=== PATIENT | female | born 1945 | race Two or more races ===

== ENCOUNTER 2019-06-20 11:58 | Inpatient (IN) | payer MEDICARE, MEDICAID ==
[~2019-06-20] VITALS: Ht 157.5 cm; Wt 92.5 kg
--- NOTE | 2019-06-20 03:32 | NUR ---
Patient recieved alert and orientated X3 Bhutanese speaking. she is aware she needs to call for assist when need to get OOB. Bed alarm on.
--- NOTE | 2019-06-20 12:02 | NUR ---
syncopal episode s/p vascular procedure , pt on monitor, pt to bed 5, -sob, nad noted, vss, pending md thomson
[2019-06-20 12:39] LABS: BASOPHILS % (AUTO) 0.6 % (0.0-2.0); EOSINOPHILS % (AUTO) 3.5 % (0.0-6.0); HEMATOCRIT 33 % (33-45); LYMPHOCYTES # (AUTO) 1.8 /CMM (0.8-4.8); LYMPHOCYTES % (AUTO) 23.5 % (20.0-44.0); MEAN CORPUSCULAR HGB CONC 33 g/dl (31.0-36.0); MEAN CORPUSCULAR VOLUME 101 fL (82-100); MONOCYTES # (AUTO) 0.5 /CMM (0.1-1.30); MONOCYTES % (AUTO) 6.6 % (2.0-12.0); NEUTROPHILS # (AUTO) 5.1 /CMM (1.8-8.9); NEUTROPHILS % (AUTO) 65.8 % (43.0-81.0); PLATELET COUNT (AUTO) 252 /CMM (150-450); RED BLOOD CELL COUNT(AUTO) 3.27 MIL/uL (4.0-5.2); WHITE BLOOD COUNT (AUTO) 7.8 K/uL (4.3-11.0)
[2019-06-20 12:46] LABS: CALCIUM, SERUM 9.2 mg/dL (8.5-10.1); CARBON DIOXIDE 22 mmol/L (21-32); CHLORIDE 99 mmol/L (98-107); GLUCOSE 87 mg/dL (74-106); POTASSIUM 4.6 mmol/L (3.5-5.1); SODIUM SERUM 136 mmol/L (136-145); UREA NITROGEN, BLOOD 46 mg/dL (7-18)
[2019-06-20 12:47] LABS: CREATININE 8.9 mg/dL (0.6-1.3)
[2019-06-20 12:52] LABS: ALKALINE PHOSPHATASE 95 U/L (46-116); ASPARTATE AMINOTRANSFERASE 20 U/L (15-37); BILIRUBIN,TOTAL 0.6 mg/dL (0.2-1.0)
[2019-06-20 13:07] LABS: ALANINE AMINOTRANSFERASE 19 U/L (12-78); ALBUMIN 3.7 g/dL (3.4-5.0); BILIRUBIN,DIRECT 0.1 mg/dL (0.0-0.2)
--- NOTE | 2019-06-20 13:18 | NUR ---
PANEL ON-CALL PAGED
[2019-06-20] MEDS ORDERED: SEVE2.4P3 PO (13:42)
[2019-06-20] MEDS ORDERED: LISI40TA4 PO (13:42)
[2019-06-20] MEDS ORDERED: RANI150T8 PO (13:42)
[2019-06-20] MEDS ORDERED: CARV6.252 PO (13:42)
--- NOTE | 2019-06-20 14:37 | NUR ---
tried to call for report x2, nurse not available
--- NOTE | 2019-06-20 14:41 | NUR ---
REPORT GIVEN TO YULIANA RN FOR BELINDA PT WILL BE TRANSPORTED TO 3RD FLOOR
--- NOTE | 2019-06-20 14:48 | NUR ---
transported to 3rd [facility]
[2019-06-20] MEDS ORDERED: CLONIDINE HCL 0.1 MG TABLET PO PRN (15:00)
[2019-06-20] MEDS ORDERED: ACETAMINOPHEN 325 MG TABLET PO PRN (15:00)
[2019-06-20] MEDS ORDERED: MAG HYDROX/AL HYDROX/SIMETH 30 ML UDC PO PRN (15:00)
[2019-06-20] MEDS ORDERED: Z GUARD REMEDY 2 OZ OINT TP PRN (15:00)
[2019-06-20] MEDS ORDERED: ONDANSETRON HCL/PF 4 MG/2 ML VIAL IVP PRN (15:00)
[2019-06-20] MEDS ORDERED: HYDROCODONE/APAP 5/325MG 1 EACH TABLET PO PRN (15:00)
[2019-06-20] MEDS ORDERED: MAGNESIUM HYDROXIDE 30 ML UDC PO PRN (15:00)
[2019-06-20 15:15] VITALS: BP 141/75
--- NOTE | 2019-06-20 15:30 | NUR ---
SENIOR COST ESTIMATOR NOTES PATIENT ADMITTED FROM ER TO TELE, FEMALE ON Dx OF SYNCOPE, GREENLANDIC SPEAKER 74 Y/OLD. PATIENT OBESE, A/O X3, NO ACUTE RESPIRATORY DISTRESS, NO DIZZINESS ,NO NAUSEA/VOMITING NOTED. WAS COMPLAINING ON BACK OF NECK PAIN 6/10 AND RADIATING ON THE SHOULDERS, AND LEFT ARM. TELE MONITOR ON SR-83 WITH PVC. SHUNT ON THE LEFT UPPER ARM INTACT, IV ACCESS ON RIGHT HAND INTACT SL. V/S TAKEN BP 141/75, P-78, R-19, O2-98 ROOM AIR, T-97.7. SKIN ASSESSMENT DONE INTACT. PATIENT USING BATHROOM. Dr MENENDEZ AWARE OF NEW PATIENT AND MEDICATION. DAUGHTER NEXT TO THE BED. CALL LIGHT WITHIN TO REACH, SAFETY PRECAUTION MAINTAINED ALL THE TIME.
--- NOTE | 2019-06-20 15:31 | NUR ---
BETINA NNOTES ADMINISTERED TYLENOL 650 MG PO PRN FOR NECK PAIN 11/08 PER PATIENT REQUEST.
[2019-06-20 16:00] VITALS: BP 141/75
[2019-06-20] MEDS: SEVELAMER CARBONATE 0.8 GM POWD.PACK PO SCH (17:31)
--- NOTE | 2019-06-20 18:00 | NUR ---
RN NOTES MEDICATION WERE ADMINISTERED FOR PAIN EFFECTIVE, TOLERATED DINNER WELL, ADMINISTERED SCHEDULED MEDICATION. FAMILY NEXT TO THE BED. CALL LIGHT WITHIN TO REACH. ENDORSED ONCOMING NURSE FOLLOW PLAN OF CARE.
[2019-06-20 20:00] VITALS: BP 131/69
[2019-06-20] MEDS: FAMOTIDINE (20 MG) 20 MG TABLET PO SCH (22:05)
[2019-06-20 22:19] VITALS: BP 131/69
[2019-06-21] VITALS: BP 112/74
--- NOTE | 2019-06-21 05:58 | NUR ---
Eliseo Lopez: Slept well. Noted Spanisn speak but with some understanding of ENLISH. school lunch monitor shows SR with PVC's HR 72. Dialysis shunt left arm palpable thrill. Assisted to the bathroom steady on her legs . No c/o syncopy. Bed alarm on
[2019-06-21 06:55] LABS: BASOPHILS % (AUTO) 0.5 % (0.0-2.0); EOSINOPHILS % (AUTO) 4.6 % (0.0-6.0); HEMATOCRIT 28 % (33-45); HEMOGLOBIN 9.8 g/dL (11.5-14.8); LYMPHOCYTES # (AUTO) 1.7 /CMM (0.8-4.8); LYMPHOCYTES % (AUTO) 22.4 % (20.0-44.0); MEAN CORPUSCULAR HGB CONC 35 g/dl (31.0-36.0); MEAN CORPUSCULAR VOLUME 99 fL (82-100); MONOCYTES # (AUTO) 0.5 /CMM (0.1-1.30); MONOCYTES % (AUTO) 7.4 % (2.0-12.0); NEUTROPHILS # (AUTO) 4.8 /CMM (1.8-8.9); NEUTROPHILS % (AUTO) 65.1 % (43.0-81.0); PLATELET COUNT (AUTO) 226 /CMM (150-450); RED BLOOD CELL COUNT(AUTO) 2.87 MIL/uL (4.0-5.2); WHITE BLOOD COUNT (AUTO) 7.4 K/uL (4.3-11.0)
[2019-06-21 07:18] LABS: CALCIUM, SERUM 9.1 mg/dL (8.5-10.1); CARBON DIOXIDE 26 mmol/L (21-32); CHLORIDE 99 mmol/L (98-107); GLUCOSE 87 mg/dL (74-106); MAGNESIUM 2.5 mg/dL (1.8-2.4); POTASSIUM 5.1 mmol/L (3.5-5.1); SODIUM SERUM 139 mmol/L (136-145); UREA NITROGEN, BLOOD 51 mg/dL (7-18)
[2019-06-21 08:00] VITALS: BP 140/68
--- NOTE | 2019-06-21 08:00 | NUR ---
HAND STONER OPENING NOTES Received Patient awake and resting in bed. A/O x 4, Kittitian speaking. VS stable with no acute distress. Breathing even and unlabored on room air with no respiratory distress. Denies pain. No signs and symptoms of pain. Telemonitor in place and patent reading SR with frequent PVCs and HR-86. 22g PIV on Right Hand clean, intact, patent and flushing well. Safety precautions in place. Bed locked and set to lowest position with side rails x 2 up. All needs rendered at this time. Call light within reach. Will continue to monitor.
[2019-06-21 08:04] LABS: CREATININE 10.7 mg/dL (0.6-1.3)
[2019-06-21 08:35] LABS: CHOLESTEROL 161 mg/dL (<200); HDL CHOLESTEROL 33 mg/dL (40-60); LDL 90 mg/dL (0-99); TRIGLYCERIDES 234 mg/dL (30-150)
[2019-06-21] MEDS: SEVELAMER CARBONATE 0.8 GM POWD.PACK PO SCH ×3 (09:23→18:09)
[2019-06-21] MEDS: FAMOTIDINE (20 MG) 20 MG TABLET PO SCH ×2 (09:23→20:40)
[2019-06-21 16:00] VITALS: BP 128/62
[2019-06-21 18:43] VITALS: BP_SYST 114; BP_SYST 126; BP_SYST 128; BP_DIAS 62; BP_DIAS 66
--- NOTE | 2019-06-21 18:45 | NUR ---
MS RN CLOSING NOTES Patient awake and resting in bed. A/O x 4, Ghanaian speaking. VS stable with no acute distress. Breathing even and unlabored on room air with no respiratory distress. Denies pain. No signs and symptoms of pain. 22g PIV on Right Hand clean, intact, patent and flushing well. Safety precautions in place. Bed locked and set to lowest position with side rails x 2 up. All needs rendered at this time. Call light within reach. Will endorse plan of care to oncoming shift.
[2019-06-21 19:52] VITALS: BP 113/55
--- NOTE | 2019-06-21 19:53 | NUR ---
Recieved in bed alert and orientated qatari speaking dtr at the bedside to trandlate. made aware about how to use the call light and call for assist to go to the bathroom. bed alarm on No noted SOB
[2019-06-21 20:00] VITALS: BP 113/55
--- NOTE | 2019-06-22 05:12 | NUR ---
ENDING NOTES: slept thru the night. Ambulated X1 to the bathroom voided. No SOB. Room air Sat mid-nineties. left arm AV Shunt with thrill
[2019-06-22 08:00] VITALS: BP 129/75
--- NOTE | 2019-06-22 08:00 | NUR ---
MS RN OPENING NOTES Patient awake and resting in bed. A/O x 4, Paraguayan speaking. VS stable with no acute distress. Breathing even and unlabored on room air with no respiratory distress. Denies pain. No signs and symptoms of pain. 22g PIV on Right Hand clean, intact, patent and flushing well. Safety precautions in place. Bed locked and set to lowest position with side rails x 2 up. All needs rendered at this time. Call light within reach. Will continue to monitor.
[2019-06-22] MEDS: SEVELAMER CARBONATE 0.8 GM POWD.PACK PO SCH ×2 (09:28→14:03)
[2019-06-22] MEDS: FAMOTIDINE (20 MG) 20 MG TABLET PO SCH (09:29)
--- NOTE | 2019-06-22 16:00 | NUR ---
MS UPHOLSTERY TECH NOTES Patient discharged for home at this time. Patient in stable condition. VS stable with no acute distress. Breathing even and unlabored on room air with no respiratory distress. Denies pain. No signs and symptoms of pain. Skin intact. Medication reconciliation and discharge orders reviewed and explained to Patient and daughter. Patient and daughter verbalized understanding. All belongings with Patient. Patient will follow up with PCP in 1 week. Patient ambulatory and escorted to the Lobby for safety. Patient picked up by daughterKizzy.
== END 2019-06-22 16:00 | disposition home or self-care (01) | DRG 312 ==
LOC: ER 12:00 → MED 14:26 → TELE 16:54 → MED 06-21 09:42
PROVIDERS: ADMIT Internal Medicine; ATTEND Internal Medicine
PROC: 5A1D70Z Performance of Urinary Filtration, Intermittent, Less than 6 Hours Per Day (ICD-10-PCS; principal; 2019-06-21)
DX: R55 Syncope and collapse (principal); N18.6 End stage renal disease; I13.2 Hypertensive heart and chronic kidney disease with heart failure and with stage 5 chronic kidney disease, or end stage renal disease; D53.9 Nutritional anemia, unspecified; I50.9 Heart failure, unspecified; Z99.2 Dependence on renal dialysis; N25.0 Renal osteodystrophy; Z98.890 Other specified postprocedural states
CPT/HCPCS: 36415; 70450-TC; 71045-TC; 80048-TC; 80061-TC; 80076-TC; 83735-TC; 84100-TC; 84484-TC; 85025-TC; 87081-TC; 90935-TC; 93307-TC; 97116-TC; 97530-TC; G0378